=== PATIENT | female | born 2000 | race Caucasian/White ===

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

== ENCOUNTER 2018-10-26 11:48 | Emergency (ER) | payer MEDICAID ==
[~2018-10-26] VITALS: Ht 160 cm; Wt 70.0 kg
[2018-10-26 11:54] VITALS: BP 102/58
[2018-10-26] MEDS ORDERED: SULF1TAB49 PO (13:10)
[2018-10-26] MEDS ORDERED: CEPH500C5 PO (13:10)
== END 2018-10-26 13:22 | disposition home or self-care (01) ==
LOC: ER 11:48
DX: N76.0 Acute vaginitis (principal); B95.8 Unspecified staphylococcus as the cause of diseases classified elsewhere; F15.10 Other stimulant abuse, uncomplicated; F41.9 Anxiety disorder, unspecified; F32.9 Major depressive disorder, single episode, unspecified; F12.90 Cannabis use, unspecified, uncomplicated; F10.99 Alcohol use, unspecified with unspecified alcohol-induced disorder; Z90.89 Acquired absence of other organs; Z79.899 Other long term (current) drug therapy; Y90.9 Presence of alcohol in blood, level not specified
CPT/HCPCS: 99283

== ENCOUNTER 2018-10-27 12:27 | Emergency (ER) | payer MEDICAID ==
[~2018-10-27] VITALS: Ht 160 cm; Wt 69.2 kg
[~2018-10-27 12:27] MED LIST changes: +CEPH500C5 PO; +SULF1TAB49 PO
[2018-10-27 12:38] VITALS: BP 115/65
== END 2018-10-27 12:58 | disposition home or self-care (01) ==
LOC: ER 12:27
DX: F15.10 Other stimulant abuse, uncomplicated (principal); Z02.89 Encounter for other administrative examinations; F12.90 Cannabis use, unspecified, uncomplicated; F41.9 Anxiety disorder, unspecified; F31.9 Bipolar disorder, unspecified; Z90.89 Acquired absence of other organs; Z79.899 Other long term (current) drug therapy
CPT/HCPCS: 96374; 99281; 99284

== ENCOUNTER 2019-02-06 13:12 | Emergency (ER) | payer MEDICAID ==
[~2019-02-06] VITALS: Ht 160 cm; Wt 68.0 kg
[~2019-02-06 13:12] MED LIST changes: -CEPH500C5 PO; -SULF1TAB49 PO
[2019-02-06 13:23] VITALS: BP 110/62
--- NOTE | 2019-02-06 13:58 | NUR ---
pt here for med clearence to go to rehab ,pt denies any heroin or other drug use.
== END 2019-02-06 14:08 | disposition home or self-care (01) ==
LOC: ER 13:12
DX: F15.90 Other stimulant use, unspecified, uncomplicated (principal); F41.9 Anxiety disorder, unspecified; F32.9 Major depressive disorder, single episode, unspecified; F12.90 Cannabis use, unspecified, uncomplicated; F10.99 Alcohol use, unspecified with unspecified alcohol-induced disorder; F17.200 Nicotine dependence, unspecified, uncomplicated; Z90.89 Acquired absence of other organs; Z79.899 Other long term (current) drug therapy; Y90.9 Presence of alcohol in blood, level not specified
CPT/HCPCS: 99281

== ENCOUNTER 2019-02-07 19:22 | Emergency (ER) | payer MEDICAID ==
[~2019-02-07] VITALS: Ht 160 cm; Wt 65.9 kg
[2019-02-07 19:39] VITALS: BP 155/91
== END 2019-02-07 22:27 | disposition home or self-care (01) ==
LOC: ER 19:23
DX: S62.396A Other fracture of fifth metacarpal bone, right hand, initial encounter for closed fracture (principal); F11.10 Opioid abuse, uncomplicated; F12.90 Cannabis use, unspecified, uncomplicated; F15.90 Other stimulant use, unspecified, uncomplicated; F17.200 Nicotine dependence, unspecified, uncomplicated; Z79.899 Other long term (current) drug therapy; Z79.1 Long term (current) use of non-steroidal anti-inflammatories (NSAID); Z90.89 Acquired absence of other organs; W22.01XA Walked into wall, initial encounter; Y93.89 Activity, other specified; Y92.89 Other specified places as the place of occurrence of the external cause; Y99.8 Other external cause status
CPT/HCPCS: 29125; 73130; 99283

== ENCOUNTER 2019-04-19 17:13 | Emergency (ER) | payer MEDICAID ==
[~2019-04-19] VITALS: Ht 160 cm; Wt 67.0 kg
[2019-04-19 17:28] VITALS: BP 114/74
[2019-04-19] MEDS ORDERED: PRED20TA PO (18:56)
[2019-04-19] MEDS ORDERED: PERM60CR19 TP (18:56)
== END 2019-04-19 19:09 | disposition home or self-care (01) ==
LOC: ER 17:14
DX: R21 Rash and other nonspecific skin eruption (principal); B86 Scabies; F12.90 Cannabis use, unspecified, uncomplicated; F15.90 Other stimulant use, unspecified, uncomplicated; F11.90 Opioid use, unspecified, uncomplicated; Z90.89 Acquired absence of other organs; Z79.899 Other long term (current) drug therapy
CPT/HCPCS: 99283

== ENCOUNTER 2019-04-26 17:11 | Emergency (ER) | payer MEDICAID ==
[~2019-04-26] VITALS: Ht 160 cm; Wt 71.0 kg
[2019-04-26 18:00] VITALS: BP 116/51
[2019-04-26] MEDS ORDERED: PRED20TA PO (20:54)
[2019-04-26] MEDS ORDERED: PERM60CR4 TOP (20:54)
== END 2019-04-26 21:04 | disposition home or self-care (01) ==
LOC: ER 17:11
DX: B86 Scabies (principal); R21 Rash and other nonspecific skin eruption; F12.90 Cannabis use, unspecified, uncomplicated; F15.90 Other stimulant use, unspecified, uncomplicated; F11.90 Opioid use, unspecified, uncomplicated; Z98.890 Other specified postprocedural states; Z79.899 Other long term (current) drug therapy
CPT/HCPCS: 99283

== ENCOUNTER 2020-08-05 21:38 | Emergency (ER) | payer MEDICAID ==
[~2020-08-05] VITALS: Ht 160 cm; Wt 72.0 kg
[~2020-08-05 21:38] MED LIST changes: +PERM60CR4 TOP
--- NOTE | 2020-08-05 22:00 | NUR ---
per LE pt needs to stay in cuffs. Will defer exam of wrist to MD to minimize time pt needs to be out of cuffs.
[2020-08-05 23:05] VITALS: BP 117/80
== END 2020-08-05 23:06 ==
LOC: ER 21:39
DX: F10.129 Alcohol abuse with intoxication, unspecified (principal); F12.90 Cannabis use, unspecified, uncomplicated; F15.90 Other stimulant use, unspecified, uncomplicated; Z72.89 Other problems related to lifestyle; Z90.89 Acquired absence of other organs; Z79.899 Other long term (current) drug therapy; Y90.9 Presence of alcohol in blood, level not specified
CPT/HCPCS: 99283

== ENCOUNTER 2021-02-18 00:46 | Emergency (ER) | payer MEDICAID, OTHER ==
[~2021-02-18] VITALS: Ht 160 cm; Wt 132.0 kg
--- NOTE | 2021-02-18 00:56 | NUR ---
PT REPORTS THAT THE MED SHE TOOK WAS PERCOCET FOR BACK PAIN. SHE DENIES ANY DESIRE TO HURT HERSELF.
[2021-02-18] MEDS ORDERED: normal saline 1000ML IV soln IVB ONE (01:05)
[2021-02-18 01:36] LABS: BASOPHILS % (AUTO) 0.3 % (0-1); EOSINOPHILS # (AUTO) 0.1 X10'3 (0-0.9); EOSINOPHILS % (AUTO) 0.8 % (0-6); HEMATOCRIT 36.6 % (35.0-45.0); HEMOGLOBIN 12.3 g/dl (12.0-16.0); LYMPHOCYTES # (AUTO) 1.5 X10'3 (1.1-4.8); LYMPHOCYTES % (AUTO) 9.1 % (21-51); MEAN CORPUSCULAR HGB CONC 33.8 g/dL (33.0-36.5); MEAN CORPUSCULAR VOLUME 91.8 FL (78-98); MEAN PLATELET VOLUME 6.9 FL (7.4-10.4); MONOCYTES # (AUTO) 1.2 X10'3 (0-0.9); MONOCYTES % (AUTO) 7.6 % (2-12); NEUTROPHILS # (AUTO) 13.2 X10'3 (1.8-7.7); NEUTROPHILS % (AUTO) 82.2 % (42-75); PLATELET COUNT 478 X10'3 (140-440); RED BLOOD COUNT 3.98 X10'6 (4.20-5.60); RED CELL DISTRIBUTION WIDTH 13.6 % (11.5-14.5); WHITE BLOOD COUNT 16.1 X10'3 (4.5-11.0)
[2021-02-18 01:50] LABS: ACETAMINOPHEN < 2.0 UG/ML (10-30); ALANINE AMINOTRANSFERASE 88 U/L (12-78); ALBUMIN 3.6 G/DL (3.4-5.0); ALBUMIN/GLOBULIN RATIO 1.1 (1.1-1.5); ALKALINE PHOSPHATASE 94 IU/L (46-116); ANION GAP 8 (8-16); ASPARTATE AMINO TRANSFERASE 60 U/L (10-37); BILIRUBIN,TOTAL 0.2 MG/DL (0.1-1.0); BLOOD UREA NITROGEN 14 MG/DL (7-18); BUN/CREATININE RATIO 15.9 (6.6-38.0); CALCIUM 8.7 MG/DL (8.5-10.1); CHLORIDE 110 MMOL/L (99-107); CREATININE 0.88 MG/DL (0.40-0.90); ETHANOL < 0.010 GM/DL (0.0-0.010); GLUCOSE 104 MG/DL (70-104); POTASSIUM 4.3 MMOL/L (3.5-5.1); SODIUM 144 MMOL/L (135-145); TOTAL CARBON DIOXIDE 25.6 MMOL/L (24-32); TOTAL PROTEIN 6.9 G/DL (6.4-8.2); eGFR 80 ML/MIN
--- NOTE | 2021-02-18 01:58 | NUR ---
CALLED POISON CONTROL. RECOMMEND CHECKING ACETAMINOPHEN LEVELS AND LIVER ENZYMES ONCE MORE AT 0300. CHECKING ASA NOW. IF PT REQUIRES ANOTHER DOSE OF NARCAN, OBSERVE FOR 4-6 HRS PRIOR TO DISCHARGE. IF PT REQUIRES MULTIPLE DOSES OF NARCAN, PLACE PT ON NARCAN DRIP. IF LIVER ENZYMES ARE ELEVATED, CONSIDER STARTING MUCOMYST.
[2021-02-18 03:04] LABS: ACETAMINOPHEN < 2.0 UG/ML (10-30); ALBUMIN 3.1 G/DL (3.4-5.0); ANION GAP 9 (8-16); BLOOD UREA NITROGEN 13 MG/DL (7-18); BUN/CREATININE RATIO 18.3 (6.6-38.0); CALCIUM 7.6 MG/DL (8.5-10.1); CHLORIDE 114 MMOL/L (99-107); CREATININE 0.71 MG/DL (0.40-0.90); GLUCOSE 88 MG/DL (70-104); SODIUM 145 MMOL/L (135-145); TOTAL CARBON DIOXIDE 22.5 MMOL/L (24-32); eGFR > 90 ML/MIN
[2021-02-18 03:25] LABS: URINE HCG NEGATIVE (NEG)
[2021-02-18 03:41] LABS: URINE AMPHETAMINE SCREEN NEGATIVE (Neg); URINE BARBITUATE SCREEN NEGATIVE (Neg); URINE BENZODIAZEPINES SCREEN NEGATIVE (Neg); URINE CANNABINOID SCREEN POSITIVE (Neg); URINE COCAINE SCREEN NEGATIVE (Neg); URINE METHADONE SCREEN NEGATIVE (Neg); URINE OPIATE SCREEN NEGATIVE (Neg); URINE PHENCYCLIDINE SCREEN NEGATIVE (Neg)
[2021-02-18 03:50] LABS: ALANINE AMINOTRANSFERASE 74 U/L (12-78); ALBUMIN/GLOBULIN RATIO 1.1 (1.1-1.5); ALKALINE PHOSPHATASE 88 IU/L (46-116); ASPARTATE AMINO TRANSFERASE 47 U/L (10-37); BILIRUBIN,DIRECT 0.1 MG/DL (0-0.3); BILIRUBIN,TOTAL 0.2 MG/DL (0.1-1.0); TOTAL PROTEIN 5.9 G/DL (6.4-8.2)
[2021-02-18 05:28] VITALS: BP 104/60
== END 2021-02-18 05:31 ==
LOC: ER 00:46 → EEVIPCON 00:46 → ER 05:31
DX: R06.89 Other abnormalities of breathing (principal); M54.9 Dorsalgia, unspecified; G89.29 Other chronic pain; F12.90 Cannabis use, unspecified, uncomplicated; F15.90 Other stimulant use, unspecified, uncomplicated; Z79.2 Long term (current) use of antibiotics; Z79.899 Other long term (current) drug therapy
CPT/HCPCS: 36415; 80048; 80053; 80076; 80305; 80320; 80329; 81025; 85025; 93005; 99285; J7030

== ENCOUNTER 2024-01-31 15:47 | Emergency (ER) | payer OTHER ==
[~2024-01-31] VITALS: Ht 160 cm; Wt 53.3 kg
[2024-01-31 15:59] VITALS: TEMP 97.8
[2024-01-31 18:58] VITALS: BP 114/56; PULSE 60; RESP 16; O2SAT 99
== END 2024-01-31 18:58 | disposition home or self-care (01) ==
LOC: ER 15:48
DX: S09.90XA Unspecified injury of head, initial encounter (principal); R56.9 Unspecified convulsions; G89.29 Other chronic pain; F12.90 Cannabis use, unspecified, uncomplicated; Z79.899 Other long term (current) drug therapy; Z79.1 Long term (current) use of non-steroidal anti-inflammatories (NSAID); Z90.89 Acquired absence of other organs; V49.88XA Car occupant (driver) (passenger) injured in other specified transport accidents, initial encounter; Y93.89 Activity, other specified; Y92.89 Other specified places as the place of occurrence of the external cause; Y99.8 Other external cause status
CPT/HCPCS: 70450; 99284

== ENCOUNTER 2024-02-07 05:39 | Inpatient (IN) | payer MEDICAID, OTHER ==
[~2024-02-07] VITALS: Ht 160 cm; Wt 51.0 kg
[2024-02-07] MEDS: LORazepam 1 MG tablet PO ONE (06:38)
[2024-02-07 06:53] LABS: URINE HCG NEGATIVE (NEG)
[2024-02-07 07:00] LABS: URINE AMPHETAMINE SCREEN NEGATIVE (Neg); URINE BARBITUATE SCREEN NEGATIVE (Neg); URINE BENZODIAZEPINES SCREEN NEGATIVE (Neg); URINE CANNABINOID SCREEN POSITIVE (Neg); URINE COCAINE SCREEN NEGATIVE (Neg); URINE METHADONE SCREEN NEGATIVE (Neg); URINE OPIATE SCREEN NEGATIVE (Neg); URINE PHENCYCLIDINE SCREEN NEGATIVE (Neg)
[2024-02-07 07:13] LABS: BILIRUBIN,URINE SMALL (Neg); CLARITY,URINE SLIGHTLY CLOUDY (Clear); COLOR,URINE YELLOW (Yellow); GLUCOSE, URINE NEGATIVE (Neg); KETONES,URINE TRACE mg/dl (Neg); LEUKOCYTE ESTERASE ,URINE NEGATIVE (Neg); NITRITES, URINE NEGATIVE (Neg); OCCULT BLOOD,URINE LARGE (Neg); PROTEIN,URINE 100 mg/dl (Neg); UROBILINOGEN,URINE 0.2 E.U/dL (0.2-1.0)
[2024-02-07] MEDS: OLANZapine 5mg rapidly disint. tablet PO ONE (07:19)
[2024-02-07 07:20] LABS: UA COLLECTION TYPE CLN CATCH MIDSTREAM
[2024-02-07 07:26] LABS: CAL OXALATE CRYSTALS 3+ /HPF (NEGATIVE)
[2024-02-07 07:28] LABS: BACTERIA,URINE 1+ /HPF (Neg); MUCUS STRANDS MODERATE /LPF (Neg); SQUAMOUS EPITHELIAL CELL,UR MANY /LPF (FEW)
[2024-02-07 07:37] LABS: BASOPHILS % (AUTO) 0.1 % (0-1); EOSINOPHILS # (AUTO) 0.2 X10'3 (0-0.9); EOSINOPHILS % (AUTO) 1.3 % (0-6); HEMATOCRIT 37.3 % (35.0-45.0); HEMOGLOBIN 12.4 g/dl (12.0-16.0); LYMPHOCYTES # (AUTO) 1.4 X10'3 (1.1-4.8); LYMPHOCYTES % (AUTO) 10.9 % (21-51); MEAN CORPUSCULAR HEMOGLOBIN 30.3 PG (27.0-31.0); MEAN CORPUSCULAR HGB CONC 33.3 g/dL (33.0-36.5); MEAN PLATELET VOLUME 7.2 FL (7.4-10.4); MONOCYTES # (AUTO) 0.8 X10'3 (0-0.9); MONOCYTES % (AUTO) 6.5 % (2-12); NEUTROPHILS # (AUTO) 10.1 X10'3 (1.8-7.7); NEUTROPHILS % (AUTO) 81.2 % (42-75); PLATELET COUNT 374 X10'3 (140-440); RED CELL DISTRIBUTION WIDTH 13.4 % (11.5-14.5); WHITE BLOOD COUNT 12.5 X10'3 (4.5-11.0)
[2024-02-07] MEDS: diphenhydrAMINE 50 mg/ml inj IM ONE ×3 (07:41→18:45)
[2024-02-07] MEDS: haloperidol lactate 5mg/ml inj IM ONE ×3 (07:41→13:01)
[2024-02-07] MEDS: LORazepam 2 mg/ml vial IM ONE ×2 (07:41→12:59)
[2024-02-07] MEDS ORDERED: rocuronium 10mg/ml inj IV ONE (08:00)
[2024-02-07 08:12] LABS: ALBUMIN 4.1 G/DL (3.4-5.0); ANION GAP 6 (8-16); BLOOD UREA NITROGEN 5 MG/DL (7-18); BUN/CREATININE RATIO 6.8 (10.0-20.0); CALCIUM 8.7 MG/DL (8.5-10.1); CHLORIDE 103 MMOL/L (99-107); CREATININE 0.73 MG/DL (0.40-0.90); ETHANOL < 10 MG/DL (<10); GLUCOSE 96 MG/DL (70-104); POTASSIUM 3.2 MMOL/L (3.5-5.1); SODIUM 138 MMOL/L (135-145); THYROID STIMULATING HORMONE 0.84 ulU/ml (0.34-4.50); TOTAL CARBON DIOXIDE 28.9 MMOL/L (24-32); eCRCL 95 ML/MIN; eGFR > 90 ML/MIN
[2024-02-07] MEDS: ziprasidone IM 20mg inj **IM only IM ONE ×2 (09:16→18:39)
[2024-02-07] MEDS: ketamine 50 mg/ml 10ml vial IM ONE ×2 (14:46→17:19)
[2024-02-07 18:56] LABS: CREATINE KINASE 2813 U/L (26-192)
[2024-02-07] MEDS: normal saline 1000ML IV soln IVB ONE (19:28)
[2024-02-07 19:42] LABS: BILIRUBIN,URINE NEGATIVE (Neg); CLARITY,URINE CLEAR (Clear); COLOR,URINE YELLOW (Yellow); GLUCOSE, URINE NEGATIVE (Neg); KETONES,URINE TRACE mg/dl (Neg); LEUKOCYTE ESTERASE ,URINE NEGATIVE (Neg); NITRITES, URINE NEGATIVE (Neg); OCCULT BLOOD,URINE NEGATIVE (Neg); PROTEIN,URINE NEGATIVE (Neg); UROBILINOGEN,URINE 0.2 E.U/dL (0.2-1.0)
[2024-02-07 19:55] LABS: UA COLLECTION TYPE FOLEY CATH
[2024-02-07 20:10] LABS: BASOPHILS % (AUTO) 0.1 % (0-1); EOSINOPHILS % (AUTO) 0 % (0-6); HEMATOCRIT 37.8 % (35.0-45.0); HEMOGLOBIN 12.7 g/dl (12.0-16.0); LYMPHOCYTES % (AUTO) 5.1 % (21-51); MEAN CORPUSCULAR HEMOGLOBIN 30.4 PG (27.0-31.0); MEAN CORPUSCULAR HGB CONC 33.5 g/dL (33.0-36.5); MEAN CORPUSCULAR VOLUME 90.7 FL (78-98); MEAN PLATELET VOLUME 7.9 FL (7.4-10.4); MONOCYTES # (AUTO) 0.9 X10'3 (0-0.9); MONOCYTES % (AUTO) 4.8 % (2-12); NEUTROPHILS # (AUTO) 17.3 X10'3 (1.8-7.7); PLATELET COUNT 352 X10'3 (140-440); RED BLOOD COUNT 4.17 X10'6 (4.20-5.60); RED CELL DISTRIBUTION WIDTH 13.8 % (11.5-14.5); WHITE BLOOD COUNT 19.2 X10'3 (4.5-11.0)
[2024-02-07] MEDS: etomidate 2mg/ml inj. IV ONE (20:15)
[2024-02-07 20:16] LABS: ALANINE AMINOTRANSFERASE 43 U/L (12-78); ALBUMIN 4.5 G/DL (3.4-5.0); ALBUMIN/GLOBULIN RATIO 1.5 (1.1-1.5); ALKALINE PHOSPHATASE 73 IU/L (46-116); ANION GAP 11 (8-16); ASPARTATE AMINO TRANSFERASE 83 U/L (10-37); BLOOD UREA NITROGEN 6 MG/DL (7-18); BUN/CREATININE RATIO 7.3 (10.0-20.0); CALCIUM 9.3 MG/DL (8.5-10.1); CHLORIDE 106 MMOL/L (99-107); CREATININE 0.82 MG/DL (0.40-0.90); GLUCOSE 103 MG/DL (70-104); POTASSIUM 3.6 MMOL/L (3.5-5.1); SODIUM 142 MMOL/L (135-145); TOTAL CARBON DIOXIDE 24.9 MMOL/L (24-32); TOTAL PROTEIN 7.5 G/DL (6.4-8.2); TRIGLYCERIDES 37 MG/DL (20-135); eCRCL 85 ML/MIN; eGFR 85 ML/MIN
[2024-02-07] MEDS: rocuronium 10mg/ml inj IV ONE ×2 (20:17→23:14)
[2024-02-07] MEDS: propofol 1000mg/100ml bottle 100 ML IV SCH (20:18)
[2024-02-07 20:26] VITALS: BP 142/91; PULSE 100; RESP 12; O2SAT 99
[2024-02-07 20:51] LABS: ABG HCO3 22.8 mmol/L (21.0-28.0); ABG OXYGEN SATURATION 98.8 % (94.0-98.0); ABG PO2 (T) 177.8 mmHg (83.0-108.0); FCOHb 0.3 % (0.5-1.5); FHHb 1.2 % (0.0-5.0); FO2Hb 98.5 % (94.0-98.0); MODE VENT - PRVC; PATIENT TEMPERATURE 37.5; PEEP 5 cm H2O; RESPIRATORY RATE 12 b/min; TIDAL VOLUME 350 mL; TOTAL HEMOGLOBIN 12.6 G/dl (12.0-16.0)
[2024-02-07] MEDS: normal saline 1000ml 1,000 ML IV ONE ×2 (21:55→23:55)
[2024-02-07 23:08] VITALS: BP 92/59; PULSE 66; RESP 14; O2SAT 100
[2024-02-07] MEDS ORDERED: normal saline 1000ML IV soln IVB ONE (23:45)
[2024-02-07 23:50] LABS: GLUCOSE,CSF 76 MG/DL (40-75); TOTAL PROTEIN,CSF 43 MG/DL (15-45)
[2024-02-07] MEDS: ringers solution, lactated 1000ml IV soln IV ONE (23:52)
[2024-02-07 23:57] LABS: APPEARANCE,CSF CLEAR; CSF SUPERNATANT COLOR COLORLESS; CSF VOLUME 6 ML; TUBE# COUNTED 1
[2024-02-08] VITALS (10 sets, daily range): BP systolic 92–117; BP diastolic 58–67; PULSE 50–102; RESP 14–18; TEMP 97.6; O2SAT 94–100
[2024-02-08 00:02] LABS: APPEARANCE,CSF CLEAR; CSF SUPERNATANT COLOR COLORLESS; CSF VOLUME 6 ML; TUBE# COUNTED 4
[2024-02-08 00:07] LABS: CSF RBC 1 /CU MM (0); CSF WBC CT 0 /CU MM (0-5)
[2024-02-08 00:08] LABS: CSF RBC 3 /CU MM (0); CSF WBC CT 0 /CU MM (0-5)
[2024-02-08] MEDS ORDERED: FENTANYL-0.9 % NACL/PF 100 ML IV ONE (02:00)
[2024-02-08] MEDS ORDERED: midazolam 100mg in NS 100ml 100 ML IV ONE (02:00)
[2024-02-08] MEDS: midazolam 100mg in NS 100ml 100 ML IV ONE (02:19)
[2024-02-08] MEDS: FENTANYL-0.9 % NACL/PF 100 ML IV ONE (02:40)
[2024-02-08] MEDS ORDERED: MIDAZolam 5mg/ml 2ml vial IV PRN (02:55)
[2024-02-08 03:51] LABS: ABG BASE EXCESS -2.3 mmol/L (-2.0-3.0); ABG HCO3 22.6 mmol/L (21.0-28.0); ABG OXYGEN SATURATION 98.4 % (94.0-98.0); ABG PCO2 (T) 39.2 mmHg (32.0-45.0); ABG PH (T) 7.377 (7.350-7.450); ABG PO2 (T) 143.1 mmHg (83.0-108.0); FCOHb 0.2 % (0.5-1.5); FHHb 1.6 % (0.0-5.0); FMetHb 0.3 % (0.0-1.5); FO2Hb 97.9 % (94.0-98.0); MODE VENT - PRVC; PATIENT TEMPERATURE 36.9; PEEP 5 cm H2O; RESPIRATORY RATE 14 b/min; TIDAL VOLUME 350 mL
[2024-02-08] MEDS: normal saline 1000ml 1,000 ML IV SCH (07:42)
[2024-02-08] MEDS ORDERED: rocuronium 10mg/ml inj IV ONE (08:00)
[2024-02-08 08:11] LABS: BASOPHILS # (AUTO) 0.1 X10'3 (0-0.2); BASOPHILS % (AUTO) 0.5 % (0-1); EOSINOPHILS # (AUTO) 0.2 X10'3 (0-0.9); EOSINOPHILS % (AUTO) 1.3 % (0-6); HEMATOCRIT 34.5 % (35.0-45.0); HEMOGLOBIN 11.4 g/dl (12.0-16.0); LYMPHOCYTES # (AUTO) 2.5 X10'3 (1.1-4.8); LYMPHOCYTES % (AUTO) 19.7 % (21-51); MEAN CORPUSCULAR HEMOGLOBIN 30.4 PG (27.0-31.0); MEAN CORPUSCULAR HGB CONC 33.1 g/dL (33.0-36.5); MEAN CORPUSCULAR VOLUME 91.6 FL (78-98); MEAN PLATELET VOLUME 7.6 FL (7.4-10.4); MONOCYTES # (AUTO) 1.1 X10'3 (0-0.9); MONOCYTES % (AUTO) 8.4 % (2-12); NEUTROPHILS % (AUTO) 70.1 % (42-75); PLATELET COUNT 298 X10'3 (140-440); RED BLOOD COUNT 3.77 X10'6 (4.20-5.60); RED CELL DISTRIBUTION WIDTH 13.4 % (11.5-14.5); WHITE BLOOD COUNT 12.8 X10'3 (4.5-11.0)
[2024-02-08 08:12] LABS: ALANINE AMINOTRANSFERASE 33 U/L (12-78); ALBUMIN 3.3 G/DL (3.4-5.0); ALBUMIN/GLOBULIN RATIO 1.2 (1.1-1.5); ALKALINE PHOSPHATASE 54 IU/L (46-116); ANION GAP 7 (8-16); ASPARTATE AMINO TRANSFERASE 67 U/L (10-37); BLOOD UREA NITROGEN 9 MG/DL (7-18); BUN/CREATININE RATIO 12.9 (10.0-20.0); CALCIUM 8.2 MG/DL (8.5-10.1); CHLORIDE 109 MMOL/L (99-107); GLUCOSE 66 MG/DL (70-104); POTASSIUM 3.1 MMOL/L (3.5-5.1); SODIUM 142 MMOL/L (135-145); TOTAL CARBON DIOXIDE 26.3 MMOL/L (24-32); TRIGLYCERIDES 34 MG/DL (20-135); eCRCL 99 ML/MIN; eGFR > 90 ML/MIN
[2024-02-08 08:53] LABS: CREATINE KINASE 1821 U/L (26-192)
[2024-02-08] MEDS ORDERED: ondansetron/PF 4mg/2ml inj IV PRN (10:10)
[2024-02-08] MEDS ORDERED: acetaminophen 325mg tablet PO PRN (10:10)
[2024-02-08] MEDS: LidoCAINE 2% Topical Jelly 11mL syringe (UROJET) TOP ONE (10:37)
[2024-02-08] MEDS: midazolam 1 mg/ML 2ml injection ONE (13:04)
[2024-02-08] MEDS: normal saline 1000ml 1,000 ML IV ONE (13:06)
[2024-02-08] MEDS: LORazepam 2 mg/ml vial ONE (14:52)
[2024-02-08] MEDS ORDERED: GADOTERATE MEGLUMINE 7.5 MMOL/15 ML VIAL IV ONE (15:10)
[2024-02-08] MEDS: CefTRIAXone/D5W-Rocephin 1gm 50 ML IV ONE (19:00)
[2024-02-08 19:27] LABS: HIV ANTIBODY 1&2 RAPID NON-REACTIVE (Neg)
[2024-02-08] MEDS: risperiDONE 2mg tablet OGT SCH (21:59)
[2024-02-09] VITALS (7 sets, daily range): BP systolic 90–119; BP diastolic 48–64; PULSE 81–116; RESP 10–21; TEMP 97.5–99.8; O2SAT 95–98
[2024-02-09 08:18] LABS: APTT 29 SECONDS (22-32); INR 1.2 INR; PROTHROMBIN TIME 12.2 SECONDS (9.0-12.0)
[2024-02-09 08:32] LABS: ALANINE AMINOTRANSFERASE 35 U/L (12-78); ALBUMIN 3.1 G/DL (3.4-5.0); ALBUMIN/GLOBULIN RATIO 1.1 (1.1-1.5); ALKALINE PHOSPHATASE 54 IU/L (46-116); ANION GAP 13 (8-16); ASPARTATE AMINO TRANSFERASE 85 U/L (10-37); BLOOD UREA NITROGEN 10 MG/DL (7-18); BUN/CREATININE RATIO 15.9 (10.0-20.0); CALCIUM 7.8 MG/DL (8.5-10.1); CHLORIDE 102 MMOL/L (99-107); CREATININE 0.63 MG/DL (0.40-0.90); GLUCOSE 57 MG/DL (70-104); MAGNESIUM 1.6 MG/DL (1.5-2.4); PHOSPHORUS 3.6 MG/DL (2.3-4.5); POTASSIUM 3.6 MMOL/L (3.5-5.1); SODIUM 134 MMOL/L (135-145); TOTAL CARBON DIOXIDE 19.4 MMOL/L (24-32); TOTAL PROTEIN 5.9 G/DL (6.4-8.2); eCRCL 110 ML/MIN; eGFR > 90 ML/MIN
[2024-02-09 08:48] LABS: BASOPHILS % (AUTO) 0.4 % (0-1); EOSINOPHILS # (AUTO) 0.1 X10'3 (0-0.9); EOSINOPHILS % (AUTO) 0.7 % (0-6); HEMATOCRIT 33.2 % (35.0-45.0); HEMOGLOBIN 11.1 g/dl (12.0-16.0); LYMPHOCYTES # (AUTO) 1.1 X10'3 (1.1-4.8); LYMPHOCYTES % (AUTO) 9.5 % (21-51); MEAN CORPUSCULAR HEMOGLOBIN 30.6 PG (27.0-31.0); MEAN CORPUSCULAR HGB CONC 33.4 g/dL (33.0-36.5); MEAN CORPUSCULAR VOLUME 91.4 FL (78-98); MONOCYTES # (AUTO) 0.6 X10'3 (0-0.9); MONOCYTES % (AUTO) 5.3 % (2-12); NEUTROPHILS # (AUTO) 9.9 X10'3 (1.8-7.7); NEUTROPHILS % (AUTO) 84.1 % (42-75); PLATELET COUNT 286 X10'3 (140-440); RED BLOOD COUNT 3.63 X10'6 (4.20-5.60); RED CELL DISTRIBUTION WIDTH 13.2 % (11.5-14.5); WHITE BLOOD COUNT 11.7 X10'3 (4.5-11.0)
[2024-02-09] MEDS: CefTRIAXone/D5W-Rocephin 1gm 50 ML IV SCH (08:56)
[2024-02-09] MEDS: nicotine 21mg patch - 24 hr TD SCH (11:02)
[2024-02-09] MEDS: acetaminophen 325mg tablet PO PRN (13:41)
[2024-02-09] MEDS: guaiFENesin 200 MG/10 ML oral syrup UD cup PO PRN (13:41)
[2024-02-09] MEDS: temazepam 15mg capsule PO ONE (21:43)
[2024-02-10 02:00] VITALS: BP 116/69; PULSE 74; RESP 20; TEMP 97.7; O2SAT 97
[2024-02-10 06:00] VITALS: BP 114/70; PULSE 88; RESP 21; TEMP 97.6; O2SAT 99
[2024-02-10 06:55] LABS: BASOPHILS % (AUTO) 0.8 % (0-1); EOSINOPHILS # (AUTO) 0.3 X10'3 (0-0.9); EOSINOPHILS % (AUTO) 4.9 % (0-6); HEMATOCRIT 34.6 % (35.0-45.0); HEMOGLOBIN 12.2 g/dl (12.0-16.0); LYMPHOCYTES % (AUTO) 15.4 % (21-51); MEAN CORPUSCULAR HEMOGLOBIN 31.9 PG (27.0-31.0); MEAN CORPUSCULAR HGB CONC 35.3 g/dL (33.0-36.5); MEAN CORPUSCULAR VOLUME 90.4 FL (78-98); MEAN PLATELET VOLUME 7.9 FL (7.4-10.4); MONOCYTES # (AUTO) 0.6 X10'3 (0-0.9); MONOCYTES % (AUTO) 9.4 % (2-12); NEUTROPHILS # (AUTO) 4.5 X10'3 (1.8-7.7); NEUTROPHILS % (AUTO) 69.5 % (42-75); PLATELET COUNT 297 X10'3 (140-440); RED BLOOD COUNT 3.83 X10'6 (4.20-5.60); RED CELL DISTRIBUTION WIDTH 13.3 % (11.5-14.5); WHITE BLOOD COUNT 6.5 X10'3 (4.5-11.0)
[2024-02-10 07:03] LABS: APTT 27 SECONDS (22-32); INR 1.1 INR; PROTHROMBIN TIME 11.9 SECONDS (9.0-12.0)
[2024-02-10 07:07] LABS: ALANINE AMINOTRANSFERASE 47 U/L (12-78); ALBUMIN 3.1 G/DL (3.4-5.0); ALBUMIN/GLOBULIN RATIO 1.1 (1.1-1.5); ALKALINE PHOSPHATASE 48 IU/L (46-116); ANION GAP 7 (8-16); ASPARTATE AMINO TRANSFERASE 101 U/L (10-37); BILIRUBIN,TOTAL 0.7 MG/DL (0.1-1.0); BLOOD UREA NITROGEN 6 MG/DL (7-18); CALCIUM 8.1 MG/DL (8.5-10.1); CHLORIDE 106 MMOL/L (99-107); GLUCOSE 91 MG/DL (70-104); MAGNESIUM 1.7 MG/DL (1.5-2.4); PHOSPHORUS 3.1 MG/DL (2.3-4.5); POTASSIUM 3.5 MMOL/L (3.5-5.1); SODIUM 140 MMOL/L (135-145); TOTAL CARBON DIOXIDE 26.9 MMOL/L (24-32); TOTAL PROTEIN 5.9 G/DL (6.4-8.2); TRIGLYCERIDES 36 MG/DL (20-135); eCRCL 139 ML/MIN; eGFR > 90 ML/MIN
[2024-02-10 08:00] VITALS: RESP 21; O2SAT 99
[2024-02-10 11:00] VITALS: BP 114/79; PULSE 94; RESP 13; TEMP 97.7; O2SAT 98
[2024-02-10] MEDS ORDERED: NICO-687 TD (13:08)
[2024-02-10] MEDS ORDERED: ACET-1008 PO (13:08)
[2024-02-11 05:31] LABS: HBSAG SCREEN Negative (Negative); HEPATITIS C VIRUS ANTIBODY Non Reactive (Non Reactive)
[2024-02-11] MEDS ORDERED: GADOTERATE MEGLUMINE 7.5 MMOL/15 ML VIAL IV ONE (11:02)
[2024-02-12 15:22] LABS: HIV-1 RNA Non Reactive (Non Reactive); HIV-2 RNA Non Reactive (Non Reactive)
== END 2024-02-10 15:00 | disposition home or self-care (01) | DRG 52 ==
LOC: ER 05:40 → ED HOLD 02-08 10:11 → PCU 3S 02-08 21:15 → UNDODISIN 02-10 14:00
PROVIDERS: ADMIT Internal Medicine Critical Care Medicine; ATTEND Internal Medicine Critical Care Medicine
PROC: 5A1935Z Respiratory Ventilation, Less than 24 Consecutive Hours (ICD-10-PCS; 2024-02-07)
PROC: 0BH17EZ Insertion of Endotracheal Airway into Trachea, Via Natural or Artificial Opening (ICD-10-PCS; 2024-02-07)
PROC: 009U3ZZ Drainage of Spinal Canal, Percutaneous Approach (ICD-10-PCS; principal; 2024-02-10)
DX: G92.8 Other toxic encephalopathy (principal); L52 Erythema nodosum; F19.10 Other psychoactive substance abuse, uncomplicated; F23 Brief psychotic disorder; Z20.822 Contact with and (suspected) exposure to COVID-19; F32.A Depression, unspecified; N39.0 Urinary tract infection, site not specified; F41.9 Anxiety disorder, unspecified; M54.9 Dorsalgia, unspecified; G89.29 Other chronic pain; Z79.899 Other long term (current) drug therapy
CPT/HCPCS: 36415; 36600; 70450; 70553; 71045; 73090; 80048; 80053; 80305; 80320; 81001; 81003; 81025; 82550; 82803; 82945; 83605; 83735; 84100; 84145; 84157; 84443; 84478; 85018; 85025; 85610; 85730; 86038; 86592; 86703; 86803; 87015; 87040; 87070; 87081; 87340; 87522; 87535; 87538; 87811; 89051; 93005; 93306; 94002; 94640; 94760; 94799; 99291; A4615; A6449; A9575; C1758; G0378; J0696; J1200; J1630; J2060; J2704; J3010; J3486; J3490; J7030